=== PATIENT | female | born 1965 | race Caucasian/White ===

== ENCOUNTER 2020-10-25 11:34 | Emergency (ER) | payer MEDICARE ==
[~2020-10-25] VITALS: Ht 170.2 cm; Wt 77.3 kg
[2020-10-25] MEDS ORDERED: PREDNISONE50 MG PO (12:46)
[2020-10-25] MEDS ORDERED: ABILIFY5 MG PO (13:07)
[2020-10-25] MEDS ORDERED: EFFEXOR XR150 MG PO (13:07)
[2020-10-25] MEDS ORDERED: RESTORIL15 MG PO (13:07)
[2020-10-25] MEDS ORDERED: ROBAXIN-750750 MG PO (13:09)
[2020-10-25] MEDS ORDERED: GABAPENTIN300 M2 PO (13:10)
[2020-10-25 13:54] VITALS: BP 109/71
== END 2020-10-25 13:54 | disposition home or self-care (01) ==
LOC: ED 11:34
DX: L23.9 Allergic contact dermatitis, unspecified cause (principal); I10 Essential (primary) hypertension

== ENCOUNTER 2020-12-06 23:29 | Observation (INO) | payer MEDICARE ==
[~2020-12-06] VITALS: Ht 170.2 cm; Wt 73.0 kg
[~2020-12-06 23:29] MED LIST: ABILIFY5 MG PO; EFFEXOR XR150 MG PO; GABAPENTIN300 M2 PO; PREDNISONE50 MG PO; RESTORIL15 MG PO; ROBAXIN-750750 MG PO
[2020-12-07 00:59] LABS: HEMATOCRIT 30.3 % (37.0-47.0); HEMOGLOBIN 9.5 g/dl (12.0-16.0); IMMATURE GRANULOCYTES 0.2 % (0.0-5.0); MEAN CELL VOLUME 73.4 fL CALC (80.0-100.0); MEAN CORPUSCULAR HGB CONC 31.4 g/dL CAL (32.0-36.0); NEUT# 2.78 thou/uL (2.00-7.15); RED BLOOD COUNT 4.13 mill/uL (4.20-5.60); RED CELL DISTRI WIDTH 22.6 % (11.5-15.5)
[2020-12-07 01:14] LABS: ALBUMIN 3.9 g/dL (3.2-5.0); ALKALINE PHOSPHATASE 135 u/l (38-126); ANION GAP 16 (6-22 (CALC)); BILIRUBIN, TOTAL 0.2 mg/dL (0.0-1.4); BUN 16 mg/dL (7-17); BUN/CREATININE RATIO 25 (12-20 (CALC)); CARBON DIOXIDE 24 mmol/l (22-30); CHLORIDE 108 mmol/l (95-108); CREATININE 0.6 mg/dL (0.5-1.0); GFR > 60 ML/MIN (>=60 (CALC)); GFR FOR AFR.AMER. > 60 ML/MIN (>=60 (CALC)); POTASSIUM 3.3 mmol/l (3.5-5.1); SGOT/AST 54 u/l (14-36); SODIUM 145 mmol/l (137-146)
[2020-12-07 05:05] LABS: URINE BILIRUBIN - DIPSTICK NEGATIVE (NEGATIVE); URINE BLOOD DIPSTICK TRACE-INTACT (NEGATIVE); URINE CLARITY CLEAR; URINE COLOR YELLOW; URINE GLUCOSE - DIPSTICK NEGATIVE (NEGATIVE); URINE KETONE NEGATIVE (NEGATIVE); URINE LEUK ESTERASE MODERATE (Negative); URINE PROTEIN - DIPSTICK NEGATIVE (NEG-TRACE); URINE UROBILINOGEN - DIPSTICK 0.2 E.U./dL (0.2)
[2020-12-07 05:16] LABS: URINE NITRITE - DIPSTICK NEGATIVE (Negative)
[2020-12-07 05:18] LABS: URINE BACTERIA MODERATE hpf; URINE EPITHELIAL CELLS MODERATE EPI/hpf (0-FEW); URINE TRICHOMONAS MODERATE hpf
[2020-12-07 08:00] VITALS: BP 174/76
[2020-12-07] MEDS ORDERED: METRONIDAZOLE500 MG PO (10:43)
[2020-12-07] MEDS ORDERED: ZPAK PO (10:43)
[2020-12-07 12:00] VITALS: BP 169/86
[2020-12-08] MEDS ORDERED: LIBRIUM25 MG PO (14:29)
[2020-12-08] MEDS ORDERED: ZOFRAN4 MG/TAB PO (14:29)
== END 2020-12-07 13:24 | disposition home or self-care (01) ==
LOC: ED 23:29 → ED-I 12-07 05:15 → ED 12-07 05:37 → ICU 12-07 05:38
PROVIDERS: Emergency Medicine; ADMIT Internal Medicine; ATTEND Internal Medicine
DX: J20.9 Acute bronchitis, unspecified (principal); J43.9 Emphysema, unspecified; F10.129 Alcohol abuse with intoxication, unspecified; A59.00 Urogenital trichomoniasis, unspecified; I10 Essential (primary) hypertension; F31.9 Bipolar disorder, unspecified; E87.2 Acidosis; T43.506A Underdosing of unspecified antipsychotics and neuroleptics, initial encounter; F17.200 Nicotine dependence, unspecified, uncomplicated; T14.8XXA Other injury of unspecified body region, initial encounter; W57.XXXA Bitten or stung by nonvenomous insect and other nonvenomous arthropods, initial encounter; Y90.8 Blood alcohol level of 240 mg/100 ml or more; Z91.128 Patient's intentional underdosing of medication regimen for other reason; Z98.84 Bariatric surgery status; Z85.41 Personal history of malignant neoplasm of cervix uteri; Z20.822 Contact with and (suspected) exposure to COVID-19

== ENCOUNTER 2020-12-08 10:31 | Emergency (ER) | payer MEDICARE ==
[~2020-12-08] VITALS: Ht 170.2 cm; Wt 79.5 kg
[~2020-12-08 10:31] MED LIST changes: +METRONIDAZOLE500 MG PO; +ZPAK PO
[2020-12-08 11:42] LABS: HEMOGLOBIN 9.5 g/dl (12.0-16.0); IMMATURE GRANULOCYTES 0.2 % (0.0-5.0); MEAN CELL VOLUME 72.8 fL CALC (80.0-100.0); MEAN CORPUSCULAR HGB 22.3 pG CALC (26.0-32.0); MEAN CORPUSCULAR HGB CONC 30.6 g/dL CAL (32.0-36.0); NEUT# 2.14 thou/uL (2.00-7.15); RED BLOOD COUNT 4.26 mill/uL (4.20-5.60); RED CELL DISTRI WIDTH 22.3 % (11.5-15.5)
[2020-12-08 11:45] LABS: URINE BILIRUBIN - DIPSTICK NEGATIVE (NEGATIVE); URINE BLOOD DIPSTICK TRACE-LYSED (NEGATIVE); URINE COLOR YELLOW; URINE GLUCOSE - DIPSTICK NEGATIVE (NEGATIVE); URINE KETONE NEGATIVE (NEGATIVE); URINE NITRITE - DIPSTICK NEGATIVE (Negative); URINE PROTEIN - DIPSTICK NEGATIVE (NEG-TRACE); URINE SPECIFIC GRAVITY 1.015; URINE UROBILINOGEN - DIPSTICK 0.2 E.U./dL (0.2)
[2020-12-08 11:50] LABS: URINE BACTERIA FEW hpf; URINE EPITHELIAL CELLS MODERATE EPI/hpf (0-FEW); URINE LEUK ESTERASE MODERATE (NEGATIVE); URINE RBC 0-2 RBC/hpf (0-5)
[2020-12-08 12:04] LABS: ACT PARTIAL THROMBO TIME 24.5 SECONDS (20.0-32.5); INTERNATIONAL NORMALIZED RATIO 1.2 RATIO (0.7-1.3)
[2020-12-08 12:05] LABS: ALKALINE PHOSPHATASE 135 u/l (38-126); AMYLASE 53 u/l (30-110); BUN 11 mg/dL (7-17); BUN/CREATININE RATIO 21 (12-20 (CALC)); CARBON DIOXIDE 24 mmol/l (22-30); CHLORIDE 100 mmol/l (95-108); CREATININE 0.5 mg/dL (0.5-1.0); ETHYL ALCOHOL 61 mg/dl (0-30); GFR > 60 ML/MIN (>=60 (CALC)); GFR FOR AFR.AMER. > 60 ML/MIN (>=60 (CALC)); LIPASE 136 u/l (23-300); SGOT/AST 83 u/l (14-36); TOTAL PROTEIN 7.3 g/dL (6.3-8.2)
[2020-12-08 12:08] LABS: ANION GAP 15 (6-22 (CALC)); BILIRUBIN, TOTAL 0.7 mg/dL (0.0-1.4); SODIUM 136 mmol/l (137-146)
[2020-12-08] MEDS ORDERED: LIBRIUM25 MG PO (14:29)
[2020-12-08] MEDS ORDERED: ZOFRAN4 MG/TAB PO (14:29)
[2020-12-08 14:45] VITALS: BP 142/95
== END 2020-12-08 15:13 | disposition home or self-care (01) ==
LOC: ED 10:31
DX: F10.239 Alcohol dependence with withdrawal, unspecified (principal); R56.9 Unspecified convulsions; E87.2 Acidosis; S09.90XA Unspecified injury of head, initial encounter; F31.9 Bipolar disorder, unspecified; J43.9 Emphysema, unspecified; F17.210 Nicotine dependence, cigarettes, uncomplicated; W07.XXXA Fall from chair, initial encounter; Z85.41 Personal history of malignant neoplasm of cervix uteri; Z20.822 Contact with and (suspected) exposure to COVID-19
CPT/HCPCS: J2060

== ENCOUNTER 2020-12-10 01:44 | Emergency (ER) | payer MEDICARE ==
[~2020-12-10] VITALS: Ht 170.2 cm; Wt 79.5 kg
[~2020-12-10 01:44] MED LIST changes: +LIBRIUM25 MG PO; +ZOFRAN4 MG/TAB PO
[2020-12-10 03:08] LABS: URINE BILIRUBIN - DIPSTICK NEGATIVE (NEGATIVE); URINE COLOR YELLOW; URINE GLUCOSE - DIPSTICK NEGATIVE (NEGATIVE); URINE KETONE NEGATIVE (NEGATIVE); URINE NITRITE - DIPSTICK NEGATIVE (Negative); URINE PROTEIN - DIPSTICK NEGATIVE (NEG-TRACE); URINE SPECIFIC GRAVITY >=1.030; URINE UROBILINOGEN - DIPSTICK 0.2 E.U./dL (0.2)
[2020-12-10 03:15] LABS: URINE LEUK ESTERASE MODERATE (NEGATIVE)
[2020-12-10 03:16] LABS: URINE BLOOD DIPSTICK NEGATIVE (NEGATIVE); URINE EPITHELIAL CELLS MODERATE EPI/hpf (0-FEW); URINE WBC 20-50 WBC/hpf (0-5)
[2020-12-10 03:17] LABS: URINE BACTERIA MODERATE hpf
[2020-12-10 03:20] LABS: ALBUMIN 3.6 g/dL (3.2-5.0); ALKALINE PHOSPHATASE 112 u/l (38-126); BUN 15 mg/dL (7-17); BUN/CREATININE RATIO 23 (12-20 (CALC)); CARBON DIOXIDE 23 mmol/l (22-30); CREATININE 0.6 mg/dL (0.5-1.0); ETHYL ALCOHOL 157 mg/dl (0-30); GFR > 60 ML/MIN (>=60 (CALC)); GFR FOR AFR.AMER. > 60 ML/MIN (>=60 (CALC)); SGOT/AST 38 u/l (14-36); TOTAL PROTEIN 6.7 g/dL (6.3-8.2)
[2020-12-10 03:21] LABS: ANION GAP 12 (6-22 (CALC)); BILIRUBIN, TOTAL 0.3 mg/dL (0.0-1.4); CHLORIDE 113 mmol/l (95-108); POTASSIUM 3.7 mmol/l (3.5-5.1); SODIUM 144 mmol/l (137-146)
[2020-12-10 03:30] LABS: HEMATOCRIT 29.4 % (37.0-47.0); IMMATURE GRANULOCYTES 0.2 % (0.0-5.0); MEAN CELL VOLUME 75.8 fL CALC (80.0-100.0); MEAN CORPUSCULAR HGB 23.2 pG CALC (26.0-32.0); MEAN CORPUSCULAR HGB CONC 30.6 g/dL CAL (32.0-36.0); NEUT# 1.85 thou/uL (2.00-7.15); RED BLOOD COUNT 3.88 mill/uL (4.20-5.60); RED CELL DISTRI WIDTH 23.4 % (11.5-15.5)
[2020-12-10] MEDS ORDERED: KEFLEX500 M1 PO (04:25)
[2020-12-10 05:00] VITALS: BP 127/62
== END 2020-12-10 05:22 ==
LOC: ED 01:44
PROVIDERS: Emergency Medicine
DX: R45.851 Suicidal ideations (principal); F31.9 Bipolar disorder, unspecified; J43.9 Emphysema, unspecified; F17.210 Nicotine dependence, cigarettes, uncomplicated; N39.0 Urinary tract infection, site not specified; B95.1 Streptococcus, group B, as the cause of diseases classified elsewhere; F10.239 Alcohol dependence with withdrawal, unspecified; G40.89 Other seizures; Z85.41 Personal history of malignant neoplasm of cervix uteri; Z20.822 Contact with and (suspected) exposure to COVID-19

== ENCOUNTER 2021-01-25 14:13 | Inpatient (IN) | payer MEDICARE ==
[2021-01-25] VITALS (7 sets, daily range): BP systolic 117–145; BP diastolic 53–77
[~2021-01-25] VITALS: Ht 170.2 cm; Wt 96.1 kg
[~2021-01-25 14:13] MED LIST changes: +KEFLEX500 M1 PO
--- NOTE | 2021-01-25 14:13 | NUR ---
PATEINT TO ROOM VIA EMS AND PHYSICIAN AT BEDSIDE FOR EVAL
--- NOTE | 2021-01-25 14:15 | NUR ---
POISON CONTROL CONTACTED. SUGGESTIVE OF SUPPORTING AIRWAY AND TREATING ANY OTHER SYMPTOMS THAT ARISE. THERE IS NO ANTIDOTE FOR GABAPENTIN. NOTIFIED
--- NOTE | 2021-01-25 14:46 | NUR ---
PT INTUBATED FOR AIRWAY PROTECTION. ARRIVED VIA EMS, LETHARGIC, INGESTED POSSIBLE GABAPENTIN (90). VSS CURRENTLY. NAD. NOUGAT CANDY MAKER HELPER TO MONITOR. ABG TO BE DRAWN SHORTLY. ETCO2 +FOR COLOR CHANGE, BBS=, CXR TO BE OBTAINED. ETT PATENT AND SECURE.
--- NOTE | 2021-01-25 15:00 | NUR ---
Reassessment of patient completed. No distress noted.SITTER WITH PT
[2021-01-25 15:18] LABS: HEMATOCRIT 32.9 % (37.0-47.0); HEMOGLOBIN 9.7 g/dl (12.0-16.0); IMMATURE GRANULOCYTES 0.3 % (0.0-5.0); MEAN CELL VOLUME 74.3 fL CALC (80.0-100.0); MEAN CORPUSCULAR HGB 21.9 pG CALC (26.0-32.0); MEAN CORPUSCULAR HGB CONC 29.5 g/dL CAL (32.0-36.0); NEUT# 3.75 thou/uL (2.00-7.15); RED BLOOD COUNT 4.43 mill/uL (4.20-5.60)
[2021-01-25 15:41] LABS: ACT PARTIAL THROMBO TIME 20.6 SECONDS (20.0-32.5); INTERNATIONAL NORMALIZED RATIO 0.9 RATIO (0.7-1.3); PROTHROMBIN TIME 9.6 SECONDS (9.0-12.5)
[2021-01-25 15:43] LABS: ALKALINE PHOSPHATASE 142 u/l (38-126); BILIRUBIN, TOTAL 0.4 mg/dL (0.0-1.4); BUN 16 mg/dL (7-17); BUN/CREATININE RATIO 26 (12-20 (CALC)); CHLORIDE 107 mmol/l (95-108); CREATININE 0.6 mg/dL (0.5-1.0); ETHYL ALCOHOL 167 mg/dl (0-30); GFR > 60 ML/MIN (>=60 (CALC)); GFR FOR AFR.AMER. > 60 ML/MIN (>=60 (CALC)); LIPASE 167 u/l (23-300); POTASSIUM 3.8 mmol/l (3.5-5.1); SGOT/AST 25 u/l (14-36); SODIUM 138 mmol/l (137-146)
[2021-01-25 15:44] LABS: ALBUMIN 4.7 g/dL (3.2-5.0); ANION GAP 17 (6-22 (CALC)); CARBON DIOXIDE 18 mmol/l (22-30); TOTAL PROTEIN 8.2 g/dL (6.3-8.2)
--- NOTE | 2021-01-25 16:01 | NUR ---
SITTER WITH PT
[2021-01-25 17:10] LABS: URINE BILIRUBIN - DIPSTICK NEGATIVE (NEGATIVE); URINE BLOOD DIPSTICK MODERATE (NEGATIVE); URINE GLUCOSE - DIPSTICK NEGATIVE (NEGATIVE); URINE KETONE NEGATIVE (NEGATIVE); URINE LEUK ESTERASE NEGATIVE (NEGATIVE); URINE NITRITE - DIPSTICK NEGATIVE (Negative); URINE PROTEIN - DIPSTICK NEGATIVE (NEG-TRACE); URINE SPECIFIC GRAVITY 1.015; URINE UROBILINOGEN - DIPSTICK 0.2 E.U./dL (0.2)
[2021-01-25 17:12] LABS: URINE COLOR STRAW
--- NOTE | 2021-01-25 17:12 | NUR ---
SITTER WITH PT
[2021-01-25 17:18] LABS: URINE WBC 0-2 WBC/hpf (0-5)
[2021-01-25 17:19] LABS: URINE SQUAMOUS EPITHELIAL CELL FEW EPI/hpf (0-FEW)
--- NOTE | 2021-01-25 18:30 | NUR ---
REPORT GIVEN TO KHURRAM
--- NOTE | 2021-01-25 19:09 | NUR ---
PT TRANSPORTED TO ICU WITH RN & SCREW MACHINE REPAIRER
--- NOTE | 2021-01-25 19:50 | NUR ---
55 yr old white female admitted icu8 per stretcher from er. transferred x4 to bed. bed weight obtained. vent cont assisted by pt. pt is lightly sedated @ present. retail shift leader shows sinus rhythm hr 74. #18 lt wrist diprivan infusing @ 20mcg/kg/min. versed gtt infusing @ 1mg/hr. #22 rt foot ns infusing @ 75cchr. history obtained per er & old record. fall precautions initiated. wrist restraints continue. sitter @ bedside.
--- NOTE | 2021-01-25 21:35 | NUR ---
dr oliveros called. update given. orders rec'd to attempt to wean in am.
--- NOTE | 2021-01-25 22:00 | NUR ---
joe from poison control called this gag writer. update given.
[2021-01-26] VITALS (24 sets, daily range): BP systolic 105–148; BP diastolic 48–82
--- NOTE | 2021-01-26 00:01 | NUR ---
awakens with touch. nad. vent cont assisted by pt. remanufacturing technician shows sinus rhythm hr 90.
--- NOTE | 2021-01-26 02:00 | NUR ---
awakens to touch but remains drowsy. follows commands. instructed pt to lay arm on bed & move lt foot. pt complied.
--- NOTE | 2021-01-26 04:15 | NUR ---
lab here. blood drawn.
--- NOTE | 2021-01-26 05:00 | NUR ---
xray here. pcxr obtained.
--- NOTE | 2021-01-26 05:34 | NUR ---
rt here. abgs drawn.
[2021-01-26 05:47] LABS: HEMATOCRIT 28.2 % (37.0-47.0); HEMOGLOBIN 8.2 g/dl (12.0-16.0); MEAN CELL VOLUME 74.8 fL CALC (80.0-100.0); MEAN CORPUSCULAR HGB 21.8 pG CALC (26.0-32.0); MEAN CORPUSCULAR HGB CONC 29.1 g/dL CAL (32.0-36.0); RED BLOOD COUNT 3.77 mill/uL (4.20-5.60); RED CELL DISTRI WIDTH 22.9 % (11.5-15.5)
[2021-01-26 06:04] LABS: ALBUMIN 3.4 g/dL (3.2-5.0); ALKALINE PHOSPHATASE 122 u/l (38-126); ANION GAP 10 (6-22 (CALC)); BILIRUBIN, TOTAL 0.4 mg/dL (0.0-1.4); BUN 13 mg/dL (7-17); BUN/CREATININE RATIO 27 (12-20 (CALC)); CARBON DIOXIDE 22 mmol/l (22-30); CHLORIDE 109 mmol/l (95-108); CREATININE 0.5 mg/dL (0.5-1.0); GFR > 60 ML/MIN (>=60 (CALC)); GFR FOR AFR.AMER. > 60 ML/MIN (>=60 (CALC)); POTASSIUM 4.2 mmol/l (3.5-5.1); SGOT/AST 24 u/l (14-36); SODIUM 137 mmol/l (137-146); TOTAL PROTEIN 6.1 g/dL (6.3-8.2)
--- NOTE | 2021-01-26 07:31 | NUR ---
PT REPORT RECEIVED FROM UNMANNED EQUIPMENT OPERATOR. PT REMAINS INTUBATED, WRIST RESTRAINTS APPLIED TO THOMAS WRISTS AND VERSED AND DIPROVAN INFUSING. PT WILL OPEN EYES WHEN ASKED AND RESPONDS TO COMMANDS.
--- NOTE | 2021-01-26 08:47 | NUR ---
PT MOTIONING WITH HANDS THAT SHE WANTS TUBE OUT OF MOUTH, EXPLAINED THAT WHEN THE DOCTOR CAME IN HE WOULD MAKE THAT DECISION.
--- NOTE | 2021-01-26 10:40 | NUR ---
BEGAN WEANING PT OFF OF DIPROVAN FOR EXTUBATION
--- NOTE | 2021-01-26 11:01 | NUR ---
PT PLACED ON SPONTANEOUS MODE. PS10, PEEP5, FIO2 30%.
--- NOTE | 2021-01-26 11:07 | NUR ---
PT EXTUBATED AND PLACED ON 2L NC.
--- NOTE | 2021-01-26 11:25 | NUR ---
PT ALERT/ORIENTED X3, RESP NORMAL, ASKING FOR SOMETHING TO EAT AND DRINK, WANTING HER GLASSES, ASKING ABOUT WHAT THE PLANS ARE FOR WHERE SHE IS GOING FROM HERE. STATES SHE NEEDS HER ANXIETY MEDICATIONS.
[2021-01-26] MEDS ORDERED: MOBIC7.5 M1 PO (11:34)
[2021-01-26] MEDS ORDERED: WELLBUTRIN XL300 MG PO (11:34)
[2021-01-26] MEDS ORDERED: CLONAZEPAM1 MG PO (11:35)
[2021-01-26] MEDS ORDERED: SOLIFENACIN SUC10 MG PO (11:37)
[2021-01-26] MEDS ORDERED: ABILIFY5 MG PO (11:37)
[2021-01-26] MEDS ORDERED: GABAPENTIN300 M2 PO (11:37)
[2021-01-26] MEDS ORDERED: LIBRIUM25 M1 PO (11:38)
[2021-01-26] MEDS ORDERED: TRAMADOL HCL50 MG PO (11:38)
[2021-01-26] MEDS ORDERED: OXYBUTYNIN CHLO15 MG PO (11:38)
[2021-01-26] MEDS ORDERED: FLEXERIL5 MG PO (11:38)
[2021-01-26] MEDS ORDERED: CLONAZEPAM0.5 M1 PO (11:41)
--- NOTE | 2021-01-26 11:42 | NUR ---
SPOKE WITH POISON CONTROL FOR UPDATE ON PT.
--- NOTE | 2021-01-26 12:40 | NUR ---
PT REMAINS ALERT/ORIENTED X3, VITAL SIGNS STABLE. SATS 100%, PT ASKING FOR PAIN MEDICATION FOR HER BACK, AND ASKING FOR ANXIETY MEDICATIONS, ALSO ASKING WHEN HER FOOD IS GOING TO BE HERE.
--- NOTE | 2021-01-26 13:28 | NUR ---
PT DEMANDING TO GET UP ONTO COMMODE, "I CANT USE THE DAMN BEDPAN", THEN AFTER THAT SHE STATES SHE HAS TO GET UP INTO CHAIR, SHE CAN STAND TO LAY BACK DOWN. STATES SHE WANTS TO TALK TO THE DOCTOR AGAIN BECAUSE SHE IS GOING TO NEED SOME NARCOTIC PAIN MEDICATIONS FOR HER BACK PAIN
--- NOTE | 2021-01-26 14:49 | NUR ---
PT BACK IN BED, PT STILL ASKING FOR PAIN MEDICATIONS, ADVISED I COULD GIVE HER MOTRIN AND SHE SAID NO.
--- NOTE | 2021-01-26 16:25 | NUR ---
PT RESTING ON LEFT SIDE, HAS A LOOSE WET COUGH, SATS REMAIN 100%, SITTER REMAINS AT BEDSIDE. PT STATES SHE WANTS ME TO NOTIFY THE DOCTOR THAT SHE NEEDS IV PAIN MEDS, SHE STATES SHE CANT SWALLOW THE PILLS AND THEY ARE NOT HELPING. STATES SHE WANTS HER PHONE TO MAKE PHONE CALLS ADVISED THAT THAT IS AGAINST POLICY
--- NOTE | 2021-01-26 17:27 | NUR ---
PT SUCTIONING OWN SELF WHEN SHE COUGHS UP PHLEGM FROM THROAT
--- NOTE | 2021-01-26 18:12 | NUR ---
PT SITTING UP ON BED EATING DINNER TRAY, TALKING AND LAUGHING WITH SITTER, PT REMAINS CALM, AND VITAL SIGNS ARE STABLE. CALL LIGHT WITHIN REACH.
--- NOTE | 2021-01-26 20:00 | NUR ---
PT ALERT AND ORIENTED. SHE IS ABLE TO TALK WITH NO PROBLEM. COMPLAINT OF PAIN IN HER LOWER BACK AT A 8. PT KNOWS HER PAIN MED IS EVERY 6 HOURS. TELE STILL ON. IV STILL IN TACT IN HER L WRIST RUNNING NORMAL SALINE. PT IS CURRENTLY SITTING IN BED WITH SITTER BY HER SIDE. NO RESTRAINTS IN USE. WILL CONTINUE TO MONITOR PT
--- NOTE | 2021-01-26 20:13 | NUR ---
PT GIVEN HER ULTRAM AND CLONAZAPAM AND REQUESTED IT TO BE CRUSHED SHE STATES "I CANT SWOLLOW ANY WHOLE PILL THE THOUGHT OF PILLS MAKE ME NAUSEOUS." SHE WAS GIVEN IT IN APPLE SAUCE
--- NOTE | 2021-01-26 22:00 | NUR ---
PT REMAINS IN BED WITH SITTER BY HER SIDE. SHE IS TALKING TO HIM. STILL COMPLAINS OF PAIN IN LOWER BACK. WILL CONTINUE TO MONITOR
[2021-01-27] VITALS (13 sets, daily range): BP systolic 108–151; BP diastolic 51–85
--- NOTE | 2021-01-27 | NUR ---
PT SLEEPING PEACEFULLY. EYES CLOSED AND NO COMPLAINT OF PAIN AT THIS TIME. WILL CONTINUE TO MONITOR
--- NOTE | 2021-01-27 02:00 | NUR ---
PT REMAINS SLEEPING. VITALS STABLE. SITTER BY BEDSIDE. WILL CONTINUE TO MONITOR
--- NOTE | 2021-01-27 04:00 | NUR ---
PT AWAKE AND COMPLAINING OF BACK PAIN. SHE WOULD LIKE HER ULTRAM AND CLOZA. LET HER KNOW ONLY PAIN PILL IS DUE. SITTER BY BEDSIDE
--- NOTE | 2021-01-27 06:00 | NUR ---
PT SLEEPING. NIGHT SITTER SWITCH WITH MORNING SITTER. VITALS STABLE
--- NOTE | 2021-01-27 08:09 | NUR ---
Patient is screened for rehab intervention and no needs are identified at this time
--- NOTE | 2021-01-27 09:23 | NUR ---
PT IS AWAKE, ALERT, RESTS IN THE BED IN NO DISTRESS. PT ABLE TO DESCRIBE WHAT LED UP TO HER TAKING NEURONTIN OVERDOSE. PT WITH SITTER AT BEDSIDE, NO AGGRESSIVE BEHAVIOR NOTED.
[2021-01-27] MEDS ORDERED: TRAMADOL HCL50 MG PO (09:51)
[2021-01-27] MEDS ORDERED: ROBITUSSIN AC10 ML PO (09:51)
[2021-01-27] MEDS ORDERED: PREDNISONE20 MG PO (09:51)
[2021-01-27] MEDS ORDERED: PANTOPRAZOLE SO40 M1 PO (09:51)
--- NOTE | 2021-01-27 11:45 | NUR ---
PT CONTINUES TO REST IN THE BED WITHOUT DISTRESS. ANSARI WAS REMOVED EARLIER. PT AWARE OF PENDING DISCHARGE TO PSYCH FACILITY.
--- NOTE | 2021-01-27 14:00 | NUR ---
PT HAS VOIDED SINCE ANSARI CATHETER HAS BEEN REMOVED.
--- NOTE | 2021-01-27 16:00 | NUR ---
PT REMAINS AT REST IN THE BED, SITTER AT BEDSIDE. PT CLEARED MEDICALLY EARLIER TODAY, AWAITING OPEN BED IN PSYCH FACILITY.
--- NOTE | 2021-01-27 18:42 | NUR ---
PT REMAINS COOPERATIVE, INTERACTIVE WITH SITTERS. NO THREAT TO SELF NOTED.
--- NOTE | 2021-01-27 19:40 | NUR ---
PATIENT IS AWAKE, ORIENTED X4. ON RA, O2 SATS GREATER THAN 95% NO SOB NOTED. COMPLAINS OF STERNAL PAIN, RIB PAIN, AND BACK PAIN, IS AWARE WHEN PAIN MEDICATION IS DUE. POC DISCUSSED, ASKS WHY SHE IS GOING TO BE DISCHARGED IF SHE IS "UNCOMFORTABLE," COMPLAINS OF PAIN, WAS EXPLAINED SHE WAS MEDICALLY CLEARED BY THE DOCTOR, ASKS IF SHE WILL BE DISCHARGED WITH PAIN MEDICATION, I EXPLINED I WILL BE CHECKING DISCHARGE NOTES AND PRESCRIPTIONS AND WILL NOTIFY HER. NURSE ASSESSMENT PERFORMED. NO IV PRESENT, PER DAYSHIFT NURSE CARMEN ENGLE IS AWARE. SR ON TELEMETRY, HR 80'S-90'S. EXPLAINS SHE HAS NEEDED COUGH MEDICATION DUE TO AFTER SHE WAS EXTUBATED SHE FEELS THROAT DISCOMFORT, CURTAIN FRAMER COUGH NOTED. SELF REPOSITIONS, WAS ABLE TO PULL HERSELF UP WITH VERBAL CUEING AND LAYS IN NARVAEZ'S POSITION. CALL LIGHT WITHIN REACH.
--- NOTE | 2021-01-27 20:00 | NUR ---
LEFT ARM ELEVATED WITH PILLOW DUE TO SLIGHT EDEMA. ALSO OINFORMED PATIENT OF DISCHARGE PRESCRIPTIONS. SAT AT BEDSIDE WHILE SITTER STEPPED OUT. NO ACUTE DISTRESS SHOWN, PATIENT WATCHES TV.
--- NOTE | 2021-01-27 21:42 | NUR ---
PATIENT ABLE TO SWALLOW MEDICATIONS WITHOUT DIFFICULTY. NO OTHER NEEDS OR COMPLAINTS AT THIS TIME.
--- NOTE | 2021-01-27 22:35 | NUR ---
PATIENT GIVEN COUGH MEDIACTION PER REQUEST. NO OTHER COMPLAINTS OR NEEDS AT THIS TIME. CALL LIGHT WITHIN REACH. SITTER AT BEDSIDE.
--- NOTE | 2021-01-27 22:55 | NUR ---
PATIENT IS AWAKE, WATCHES TV, LAUGHS.
[2021-01-28] VITALS (12 sets, daily range): BP systolic 121–154; BP diastolic 56–73
--- NOTE | 2021-01-28 00:43 | NUR ---
PATIENT AWAKENS EASILY, AFEBRILE. NO ACUTE DISTRESS SHOWN. CALL LIGHT WITHIN REACH.
--- NOTE | 2021-01-28 02:19 | NUR ---
PATIENT WAS ASSISTED TO BSC, NO ACUTE DISTRESS SHOWN. VOIDS YELLO/CLEAR URINE. SAFELY BACK TO BED.
--- NOTE | 2021-01-28 04:30 | NUR ---
PATIENT RESTS WITH EYES CLOSED, AWAKENS EASILY. AFEBRILE. SITTER AT BEDSIDE. NO COMPLAINT OR NEEDS AT THIS TIME.
--- NOTE | 2021-01-28 06:07 | NUR ---
PAIN MEDICATION PROVIDED PER PATIENT REQUEST, PATIENT ASKS WHY THE TABLET WAS "OVAL" BECAUSE THE TRAMADOL YESTERDAY WAS DIFFERENT SHAPE. I SHOWED PATIENT THE MEDICATION WRAPPER, AND SITTER AT BEDSIDE WITNESSED. NO OTHER NEEDS OR COMPLAINTS AT THIS TIME.
--- NOTE | 2021-01-28 08:54 | NUR ---
PT SEEN AT REST IN THE BED WITH SITTER AT BEDSIDE. PT ASKING MANY QUESTIONS, ANSWERED ABLE. PT CONTINUES WITH LOW BACK PAIN, MEDICATED WHEN MEDS AVAILABLE.
--- NOTE | 2021-01-28 11:30 | NUR ---
PT BEFORE, NO CHANGE TO REPORT. PT AWARE OF PENDING DISPOSITION TO PSYCH FACILITY WHEN BED BECOMES AVAILABLE.
[2021-01-28 15:55] LABS: HEMATOCRIT 28.3 % (37.0-47.0); HEMOGLOBIN 8.2 g/dl (12.0-16.0); MEAN CELL VOLUME 74.1 fL CALC (80.0-100.0); MEAN CORPUSCULAR HGB 21.5 pG CALC (26.0-32.0); RED BLOOD COUNT 3.82 mill/uL (4.20-5.60); RED CELL DISTRI WIDTH 22.9 % (11.5-15.5)
[2021-01-28 16:04] LABS: ANION GAP 12 (6-22 (CALC)); BUN 12 mg/dL (7-17); BUN/CREATININE RATIO 20 (12-20 (CALC)); CARBON DIOXIDE 23 mmol/l (22-30); CHLORIDE 106 mmol/l (95-108); CREATININE 0.6 mg/dL (0.5-1.0); GFR > 60 ML/MIN (>=60 (CALC)); GFR FOR AFR.AMER. > 60 ML/MIN (>=60 (CALC)); POTASSIUM 4.4 mmol/l (3.5-5.1); SODIUM 136 mmol/l (137-146)
--- NOTE | 2021-01-28 16:14 | NUR ---
PT REMAINS CALM SHE RESTS IN THE BED, NO DISTRESS NOTED. PT WAITS FOR ACCEPTANCE TO PSYCH FACILITY. SITTER REMAINS AT BEDSIDE.
--- NOTE | 2021-01-28 16:16 | NUR ---
CHLOE CARLOS A [phone] WAS CALLED TODAY AND UPDATED ON PT'S CONDITION PER PT'S REQUEST. THIS IS HER LATE MOTHER'S BEST FRIEND, SOMEONE WHO WILL TAKE HER IN AFTER [facility] ACT.
--- NOTE | 2021-01-28 19:25 | NUR ---
PATIENT IS AWAKE, ORIENTED X4. REPORTS HER PAIN HAS BEEN LESS TODAY BY TAKING GUAFENESIN SYRUP AND TRAMADOL PRN. ON RA, O2 SATS GREATER THAN 95%, NO SOB NOTED, NO RESPIRATORY DISTRESS NOTED. SR ON TELEMETRY, HR 80'S. BP 130'S SYSTOLIC. NURSE ASSESSMENT PERFORMED. POC DISCUSSED, PATIENT COMPLAINS SHE IS NOT RECEIVING CORRECT DOSAGES OF MEDICATIONS SHE TAKES AT HOME, DOSAGES ARE SUPPOSED TO BE HIGHER, WELL NOT RECEIVING OTHER HOME MEDICATIONS, I EXPLAINED TO PATIENT WHEN SHE WAS ADMITTED SHE WAS NOT ABLE TO PROVIDE MEDICATION LIST, I WILL PLACE A PHARMACY CONSULT, PATIENT REPORTS SHE USES [facility] IN [place]. NO IV PRESENT. SELF REPOSITIONS. WATCHES TV, CONVERSATES WITH SITTER AT BEDSIDE. ICED WATER PROVIDED.
--- NOTE | 2021-01-28 21:21 | NUR ---
PATIENT ABLE TO SWALLOW MEDICATIONS WITHOUT DIFFICULTY. REQUESTS COUGH MEDICATION WHEN DUE AND TRAMADOL WHEN DUE, WILL PROVIDE WHEN DUE. NO ACUTE DISTRESS SHOWN. OFFERED MOTRIN AND REFUSES AT THIS TIME, REPORTS IT MAKES HER NAUSEAS.
[2021-01-29] VITALS (8 sets, daily range): BP systolic 119–154; BP diastolic 51–71
--- NOTE | 2021-01-29 00:13 | NUR ---
PAIN MEDICATION PROVIDED PER REQUEST. PATIENT REQUESTED TO BE AWOKEN FOR PAIN MEDIACTION. NO ACUTE DISTRESS SHOWN. SITTER AT BEDSIDE.
--- NOTE | 2021-01-29 02:04 | NUR ---
PATIENT AWAKENS EASILY WITH VERBAL STIMULI. NO COMPLAINTS OR NEEDS AT THIS TIME. SITTER AT BEDSIDE.
--- NOTE | 2021-01-29 05:05 | NUR ---
PATIENT AWAKENS EASILY WITH VERBAL STIMULI. NO ACUTE DISTRESS SHOWN. NO NEEDS OR COMPLAINTS.
--- NOTE | 2021-01-29 09:37 | NUR ---
PT AWAKE, ALERT, ORIENTED X 3. LUNGS CLEAR, RA. PT WITHOUT COMPLAINT OR DISTRESS SHE RESTS IN THE BED. AWAITING [facility] ACT PLACEMENT.
[2021-01-29 12:49] LABS: HEMATOCRIT 29.2 % (37.0-47.0); HEMOGLOBIN 8.5 g/dl (12.0-16.0); MEAN CELL VOLUME 74.5 fL CALC (80.0-100.0); MEAN CORPUSCULAR HGB 21.7 pG CALC (26.0-32.0); MEAN CORPUSCULAR HGB CONC 29.1 g/dL CAL (32.0-36.0); RED BLOOD COUNT 3.92 mill/uL (4.20-5.60)
--- NOTE | 2021-01-29 13:00 | NUR ---
PT WITH IV ESTABLISHED AND VENIFER TO BE GIVEN PER SUSPECTED IRON DEFICIENT ANEMIA. PT TOLERATED WELL.
--- NOTE | 2021-01-29 16:41 | NUR ---
REPORT PROVIDED TO [facility] FOR POSSIBLE PLACEMENT. PT RESTS IN THE BED WITH EYES CLOSED.
--- NOTE | 2021-01-29 19:35 | NUR ---
PT WAS TRANSFERRED TO RECEIVING FACILITY VIA OFFICER [employer]. PT IS ALERT AND ORIENTED AND ABLE TO MAKE NEEDS KNOWN. NO RESPIRATORY DISTRESS NOTED. NO COUGH OR CONGESTION NHOTED. PM MEWDDICATIONS GIVEN ALONG WITH KLONOPIN AND COUGH SYRUP PER PT REQUEST. PT WAS TRANSFERRED VIA WHEELCHAIR TO OFFICER [facility] AND WAS ABLE TO TRANSFER SELF. ALL PERTINENT PAPERS AND BELONGINGS TAKEN WITH PT.
== END 2021-01-29 19:30 | DRG 918 ==
LOC: ED 14:13 → ED-I 16:35 → ED 16:52 → ICU 16:53
PROVIDERS: Nurse Practitioner; Student in an Organized Health Care Education/Training Program; ADMIT Internal Medicine; ATTEND Internal Medicine
PROC: 0BH17EZ Insertion of Endotracheal Airway into Trachea, Via Natural or Artificial Opening (ICD-10-PCS; principal; 2021-01-25)
PROC: 5A1935Z Respiratory Ventilation, Less than 24 Consecutive Hours (ICD-10-PCS; 2021-01-25)
DX: T42.6X2A Poisoning by other antiepileptic and sedative-hypnotic drugs, intentional self-harm, initial encounter (principal); F31.9 Bipolar disorder, unspecified; F41.9 Anxiety disorder, unspecified; J43.9 Emphysema, unspecified; G89.4 Chronic pain syndrome; F10.129 Alcohol abuse with intoxication, unspecified; D50.9 Iron deficiency anemia, unspecified; F17.200 Nicotine dependence, unspecified, uncomplicated; Y90.6 Blood alcohol level of 120-199 mg/100 ml; Z98.84 Bariatric surgery status; Z85.41 Personal history of malignant neoplasm of cervix uteri; Z87.19 Personal history of other diseases of the digestive system; Z20.822 Contact with and (suspected) exposure to COVID-19
CPT/HCPCS: J1756